=== PATIENT | male | born 1955 | race Caucasian/White ===

== ENCOUNTER 2017-04-29 22:18 | Emergency (ER) | payer OTHER, MEDICARE ==
[~2017-04-29] VITALS: Ht 177.8 cm; Wt 79.4 kg
[~2017-04-29 22:18] MED LIST: ALBU90OI INH; ALBU90OI61 INH; AMOCLA875 PO; AMOX500 PO; Aspirin PO; BISA5EC PO; BUSP10 PO; CEPH500 PO; CIPR500 PO; CYCL10 PO; Colace100 MG PO; Crutch1 EACH EXT; Cymbalta60 MG PO; DIAZ5 PO; DIPATR PO; DULO60; DULO60 PO; ENDOCET 2.5-321 EACH PO; ESOM20 PO; Flomax0.4 MG PO; GABA300 PO; HYDACE10B PO; HYDACE5 PO; HYDACE5325 PO; HYDROCODONE 7.5 MG; IBUP600 PO; IBUP800 PO; Keflex500 MG PO; LASIX; LISI5 PO; LORA1 PO; MELO7.5 PO; META800 PO; METH10 PO; METO50ER PO; METOPROLOL; METPRE4DP PO; METRIBP PO; MORP15ER PO; MORP30ER PO; MULVITB&C PO; MULVITMIND PO; NAPR550 PO; Nexium40 MG PO; OXYACE5T PO; OXYACE7.5T PO; OXYC1TAB11 PO; OXYC5 PO; PANT40; PANT40 PO; POTASSIUM; PRED10 PO; PRED20 PO; PROCODE120 PO; PROM25 PO; Percocet 10-321 EACH PO; Primalev 10-301 EACH PO; Prinivil10 MG PO; RXHYDACE PO; RXNAPNA550 PO; RXOXYACE PO; RXSULTRIDS PO; SERT25 PO; SULI150 PO; SULTRIDS PO; TAMS.4ER PO; TRAM50 PO; TRAZ100 PO; TRAZ150T57 PO; TRAZ50 PO; Zofran Odt4 MG SL; [UNRECOGNIZED DRUG - REMARK]
[2017-04-29] MEDS ORDERED: Zanaflex4 MG PO (22:25)
[2017-04-29] MEDS ORDERED: OXYC1TAB11 PO (22:25)
[2017-04-29 23:25] LABS: Calcium, Ionized (POC) 1.16 mmol/L (1.10-1.46); Chloride (POC) 103 mmol/L (98-108); Glucose (ISTAT POC) 98 mg/dL (70-99); Hemoglobin (POC) 13.9 g/dL (13.5-17.5); Sodium (POC) 139 mmol/L (135-148); Total CO2 (POC) 24 mmol/L (21-32)
== END 2017-04-30 00:20 | disposition home or self-care (01) ==
LOC: ER 22:18
PROVIDERS: Emergency Medicine
DX: M16.12 Unilateral primary osteoarthritis, left hip (principal); Z79.899 Other long term (current) drug therapy; I10 Essential (primary) hypertension; F17.200 Nicotine dependence, unspecified, uncomplicated
CPT/HCPCS: 73502; 80047; 85014; 99283; J1100

== ENCOUNTER 2017-06-06 17:38 | Emergency (ER) | payer MEDICARE, OTHER ==
[~2017-06-06] VITALS: Ht 182.9 cm; Wt 68.0 kg
[~2017-06-06 17:38] MED LIST changes: +Zanaflex4 MG PO
[2017-06-06] MEDS ORDERED: CEPH500 PO (18:02)
== END 2017-06-06 18:11 | disposition home or self-care (01) ==
LOC: ER 17:38
DX: L21.9 Seborrheic dermatitis, unspecified (principal); L03.811 Cellulitis of head [any part, except face]; Z79.899 Other long term (current) drug therapy; Z79.2 Long term (current) use of antibiotics; I10 Essential (primary) hypertension; F17.210 Nicotine dependence, cigarettes, uncomplicated
CPT/HCPCS: 99282

== ENCOUNTER 2017-08-01 05:50 | Emergency (ER) | payer MEDICARE, OTHER ==
[~2017-08-01] VITALS: Ht 182.9 cm; Wt 68.0 kg
[2017-08-01] MEDS ORDERED: BUPR150ER PO (06:05)
[2017-08-01] MEDS ORDERED: Percocet 10-321 EACH PO (07:48)
== END 2017-08-01 08:00 | disposition home or self-care (01) ==
LOC: ER 05:50
DX: R07.81 Pleurodynia (principal); M54.5 Low back pain; I10 Essential (primary) hypertension; F17.210 Nicotine dependence, cigarettes, uncomplicated; Z79.899 Other long term (current) drug therapy; X58.XXXA Exposure to other specified factors, initial encounter; Y93.89 Activity, other specified
CPT/HCPCS: 71101

== ENCOUNTER 2017-08-05 07:51 | Emergency (ER) | payer MEDICARE, OTHER ==
[~2017-08-05] VITALS: Ht 182.9 cm; Wt 68.0 kg
[~2017-08-05 07:51] MED LIST changes: +BUPR150ER PO
[2017-08-05] MEDS ORDERED: IBUP600 PO (10:32)
== END 2017-08-05 10:30 | disposition home or self-care (01) ==
LOC: ER 07:51
DX: R07.81 Pleurodynia (principal); R10.9 Unspecified abdominal pain; Z79.899 Other long term (current) drug therapy; I10 Essential (primary) hypertension; F17.210 Nicotine dependence, cigarettes, uncomplicated
CPT/HCPCS: 36415; 74176; 81000; 96374; 99284; J1885

== ENCOUNTER 2017-09-30 18:12 | Emergency (ER) | payer MEDICARE, OTHER ==
[~2017-09-30] VITALS: Ht 182.9 cm; Wt 68.0 kg
== END 2017-09-30 18:32 | disposition home or self-care (01) ==
LOC: ER 18:12
DX: R21 Rash and other nonspecific skin eruption (principal); Z79.899 Other long term (current) drug therapy; Z79.891 Long term (current) use of opiate analgesic; I10 Essential (primary) hypertension; F17.200 Nicotine dependence, unspecified, uncomplicated
CPT/HCPCS: 99281

== ENCOUNTER → 2019-01-05 | Outpatient (CLI) | payer MEDICARE, OTHER | END | disposition home or self-care (01) | LOC: LAB SHORT 08:22 → OLS 08:22 | DX: L57.8 Other skin changes due to chronic exposure to nonionizing radiation (principal) | CPT/HCPCS: 88305 ==

== ENCOUNTER 2022-03-28 08:40 | Inpatient (IN) | payer MEDICARE, OTHER ==
[~2022-03-28] VITALS: Ht 182.9 cm; Wt 78.2 kg
[~2022-03-28 08:40] MED LIST changes: +DULOXETINE HCL60 M1 PO; +ENOX40I SC; +Mucinex600 MG PO
[2022-03-28 09:49] LABS: BASOPHILS ABSOLUTE AUTO 0.09 K/mm3 (0.00-0.23); BASOPHILS PERCENT AUTO 1 % (0-2); Base Excess Venous -2.5 mmol/L; Bicarbonate Venous 22.7 mmol/L (24.0-30.0); EOSINOPHILS ABSOLUTE AUTO 0.05 K/mm3 (0.00-0.68); EOSINOPHILS PERCENT AUTO 0 % (0-6); Hematocrit 34.6 % (37.0-53.0); Hemoglobin 11.6 g/dL (13.5-17.5); IMMATURE GRAN ABSOLUTE AUTO 0.07 K/mm3 (0.00-0.10); IMMATURE GRAN PERCENT AUTO 1 % (0-1); LYMPHOCYTES ABSOLUTE AUTO 1.97 K/mm3 (0.84-5.20); LYMPHOCYTES PERCENT AUTO 15 % (21-46); MONOCYTES PERCENT AUTO 9 % (4-13); Mean Corpuscular HGB 30.5 pg (26.0-34.0); Mean Corpuscular HGB Conc 33.5 g/dL (31.5-36.5); Mean Corpuscular Volume 91 fL (80-100); Mean Platelet Volume 10.1 fL (9.1-12.4); NEUTROPHILS PERCENT AUTO 75 % (41-73); NRBC ABSOLUTE 0.04 K/mm3 (0.00-0.02); NRBC Auto 0.3 /100 WBC (0.0-0.2); Platelet Count 285 K/mm3 (150-400); RDW Coefficient Variation 13.7 % (11.7-14.2); RDW Standard Deviation 46.2 fL (35.1-46.3); White Blood Cell Count 13.58 K/mm3 (4.00-11.30); pH Blood Venous 7.41 (7.34-7.37)
[2022-03-28 10:05] LABS: Albumin, Blood 3.1 g/dL (3.4-5.0); Albumin/Globulin Ratio 0.9 (0.8-1.8); Bilirubin, Total 0.7 mg/dL (0.1-1.0); Calcium, Blood 8.4 mg/dL (8.5-10.1); Creatinine, Blood 1.24 mg/dL (0.60-1.20); Globulin, Blood 3.4 g/dL (2.2-4.0); Potassium, Blood 4.4 mmol/L (3.5-5.5); Total Protein, Blood 6.5 g/dL (6.4-8.2)
[2022-03-28 10:28] LABS: Influenza A, PCR NEGATIVE (NEGATIVE); Influenza B, PCR NEGATIVE (NEGATIVE); Resp Syncytial Virus, PCR NEGATIVE (NEGATIVE); SARS-Cov-2 (COVID-19) PCR, MMC NEGATIVE (NEGATIVE)
--- NOTE | 2022-03-28 15:07 | NUR ---
PT TO UNIT @ THIS TIME PT TALKATIVE. [facility] PROVIDED THIS RN W/ IV ABX SCHEDULED FOR 1150-PLAN TO CONTACT PHARMACY. PT HYPERTENSIVE, TACHYCARDIC, TACHYIPNIC. DIGITS APPEAR BLUE. TWO RN SKIN CHECK COMPLETE W/ ADAM RN. PT APPEARS TO BE IN DISTRESS-STATES HE DOES NOT COME TO THE HOSPITAL AND HE HAS BEEN DEPRESSION FOR 3 YEARS-STOPPED TAKING ALL MEDS.
--- NOTE | 2022-03-28 17:39 | NUR ---
SHIFT SUMMARY PT A&OX4 SINCE ARRIVAL TO UNIT. PT C/O SEVERE ABD PAIN, PAINFUL LUMP IN L BREAST, CONSTIPATION. MEDICATED PER EMAR, CURRENTLY IN CT NOW. IND. IN ROOM, SBA W/ IV ABX/FLUIDS. FRIEND IN TO SEE PT APPROX ONE HOUR AFTER ARRIVAL TO UNIT, PT OK THIS RN TO UPDATE FRIEND ON CONDITION. TOLERATING PO INTAKE AT THIS TIME. PT IN BATHROOM ATTEMPTING TO HAVE BM FREQUENTLY. HTN, TACHYCARDIA, INCREASED BREATHING EFFORT.
[2022-03-29 04:56] LABS: Hematocrit 36.8 % (37.0-53.0); Hemoglobin 12.3 g/dL (13.5-17.5); Mean Corpuscular HGB Conc 33.4 g/dL (31.5-36.5); Mean Corpuscular Volume 90 fL (80-100); Mean Platelet Volume 9.9 fL (9.1-12.4); NRBC ABSOLUTE 0.02 K/mm3 (0.00-0.02); NRBC Auto 0.2 /100 WBC (0.0-0.2); Platelet Count 278 K/mm3 (150-400); RDW Coefficient Variation 13.9 % (11.7-14.2); RDW Standard Deviation 45.7 fL (35.1-46.3); White Blood Cell Count 12.09 K/mm3 (4.00-11.30)
[2022-03-29 05:35] LABS: Bun/Creatinine Ratio 23.1 (12.0-20.0); Calcium, Blood 8.3 mg/dL (8.5-10.1); Creatinine, Blood 1.21 mg/dL (0.60-1.20); Potassium, Blood 4.2 mmol/L (3.5-5.5)
[2022-03-29 07:39] LABS: Albumin, Blood 3.1 g/dL (3.4-5.0); Albumin/Globulin Ratio 0.9 (0.8-1.8); Bilirubin, Total 0.9 mg/dL (0.1-1.0); Globulin, Blood 3.4 g/dL (2.2-4.0); Total Protein, Blood 6.5 g/dL (6.4-8.2)
--- NOTE | 2022-03-29 07:47 | NUR ---
ACCOUNTANT TAX SUMMARY PT WAKEFUL T/O THE NIGHT. PT CONSISTANT COMPLAINING OF LOWER ABDOMINAL PAIN AND INCREASEED ANXIETY--PT SAID HE FELT CLAUSTERPHOBIC AND LIKE SOMETHING BAD WAS HAPPENING TO HIM. PT ABDOMEN WAS DISTENDED AND FIRM. PT SAT UP IN BED LEANING OVER IN TRIPOD POSITION MUCH OF THE NIGHT. ELEVATED DBP. NOTED DURING ASSESSMENT CYANOTIC FINGERS AND TOES--MORE PRONOUNCED ON THE RIGHT FOOT. CAP REFILL LONGER THAN 3 SECONDS. PT ON TELE--SINUS TACH BETWEEN 110-120. REVIEWED PT CONDITION WITH CHARGE NURSE. MADE INITIAL CALL TO TO REPORT ANXIETY, CYANOSIS, ASCITIES, AND ELEVATED BNP. NEW ORDER FOR 1X 0.5MG PO ATIVAN F/ANXIETY; ADVISED OTHER ISSUES WOULD BE ADDRESSED IN AM. PT HAD RUN OF V-TACH AT APROX 0500; SECOND CALL TO TO REPORT--NEW ORDER FOR CHEM PANEL. PT REPORTED SOME RELIEF OF ANXIETY AND IMPROVED FEELING IN THE AM. ABDOMEN FEELS SOFTER. DBP REMAINS ELEVATED AND CYANOSIS PERSISTS IN LOWER EXTREMITIES. PT IS IMPULSIVE AND WILL NOT ALWAYS USE CALL LIGHT F/ASSISTANCE.
--- NOTE | 2022-03-29 09:50 | NUR ---
PT LEFT AMA CHARGE DANI REMOVED IV AND TELE PRIOR TO LEAVING THIS UNIT, PT SIGNED AMA PAPERWORK-DR HERCULES NOTIFIED. PT EDUCATED ON IMPORTANCE OF STAYING FOR MEDICAL INTERVENTION FOR HTN. DIASTOLIC 120.
== END 2022-03-29 09:42 | disposition left against medical advice (07) | DRG 871 ==
LOC: ER 08:40 → MEDS 12:30
PROVIDERS: Emergency Medicine; ADMIT Internal Medicine
DX: A41.01 Sepsis due to Methicillin susceptible Staphylococcus aureus (principal); J13 Pneumonia due to Streptococcus pneumoniae; E87.1 Hypo-osmolality and hyponatremia; I13.0 Hypertensive heart and chronic kidney disease with heart failure and stage 1 through stage 4 chronic kidney disease, or unspecified chronic kidney disease; N17.9 Acute kidney failure, unspecified; I24.8 Other forms of acute ischemic heart disease; I50.9 Heart failure, unspecified; M54.9 Dorsalgia, unspecified; G89.29 Other chronic pain; F32.A Depression, unspecified; B19.20 Unspecified viral hepatitis C without hepatic coma; K25.9 Gastric ulcer, unspecified as acute or chronic, without hemorrhage or perforation; N18.30 Chronic kidney disease, stage 3 unspecified; D63.1 Anemia in chronic kidney disease; E11.22 Type 2 diabetes mellitus with diabetic chronic kidney disease; J43.9 Emphysema, unspecified; Z20.822 Contact with and (suspected) exposure to COVID-19; B96.3 Hemophilus influenzae [H. influenzae] as the cause of diseases classified elsewhere; F17.210 Nicotine dependence, cigarettes, uncomplicated; F41.9 Anxiety disorder, unspecified; Z98.1 Arthrodesis status; Z79.899 Other long term (current) drug therapy; Z79.811 Long term (current) use of aromatase inhibitors; Z79.891 Long term (current) use of opiate analgesic; Z98.890 Other specified postprocedural states
CPT/HCPCS: 0241U; 36415; 71045; 71260; 74177; 80048; 80053; 82010; 82803; 82947; 83036; 83880; 84145; 84484; 85025; 85027; 87070; 87077; 87185; 87186; 87205; 93005; 93010; 94640; 94664; 94760; 96361; 96374; 99285-25; A9270; J0456; J0696; J1650; J7030; J7050; J7120; Q9967